=== PATIENT | male | born 1970 | race Caucasian/White ===

== ENCOUNTER 2024-06-18 10:09 | Emergency (ER) | payer OTHER, SELFPAY ==
[2024-06-18 10:14] VITALS: BP 107/64
[2024-06-18 10:27] VITALS: BMI 32.3
[2024-06-18 10:29] VITALS: BP 108/65
[2024-06-18 10:30] VITALS: BP 108/65
[2024-06-18 11:00] VITALS: BP 97/64
[2024-06-18 11:00] LABS: % Basophils 0.5 % (0-2); % Eosinophils 1.7 % (0-6); % Immature Granulocytes 0.3 % (0-0.5); % Lymphocytes 30.3 % (20.5-51.1); % Monocytes 7.9 % (1.7-9.3); % Neutrophils 59.3 % (42.2-75.2); Absolute Eosinophils 0.1 10^3/uL (0-0.7); Absolute Lymphocytes 2.3 10^3/uL (1.2-3.4); Absolute Monocytes 0.6 10^3/uL (0.1-0.6); Absolute Neutrophils 4.5 10^3/uL (1.4-6.5); Hematocrit 40.6 % (39.0-52.0); Mean Corp Hgb Conc. 36.9 g/dL (33.0-37.0); Mean Corpuscular Hgb 29.4 pg (27.0-31.0); Mean Corpuscular Volume 79.6 fL (80.0-94.0); Mean Platelet Volume 10.2 fL (7.4-10.4); Nucleated Red Blood Cells % 0 % (-); Platelet Count 254 10^3/uL (130-400); Red Cell Dist. Width 12.1 % (11.5-14.5); White Blood Cell Count 7.6 10^3/uL (4.8-10.8)
[2024-06-18 11:17] LABS: ALT (SGPT) 18 U/L (0-50); AST (SGOT) 23 U/L (17-59); Albumin 4.2 g/dl (3.5-5.0); Alkaline Phosphatase 108 U/L (38-126); Blood Urea Nitrogen 18 mg/dl (9-20); Carbon Dioxide 28 mmol/L (22-30); Chloride 100 mmol/L (98-107); Estimated Creatinine Clearance > 125 ml/min; Glucose 167 mg/dl (70-99); Potassium 4.1 mmol/L (3.5-5.1); Sodium 137 mmol/L (135-145); Total Bilirubin 1.1 mg/dl (0.2-1.3); Total Protein 6.4 g/dl (6.3-8.2); eGFR > 60.00
--- NOTE | 2024-06-18 11:19 | ED.GENMED ---
History of Present Illness
<Angelina Acuna PA-C - Last Filed: 06/18/24 19:34>
General
Chief Complaint: Abnormal Lab Value
Source: patient
Exam Limitations: none
Time Seen by Provider: 06/18/24 11:19
Nursing documentation reviewed up to this point in time: agreed with
History of Present Illness
History of Present Illness:
Patient is a 54-year-old male with history insulin-dependent diabetes, CAD, hypertension, hyperlipidemia presenting to the emergency department for evaluation of hyperglycemia noted on outpatient lab work. Patient states that he had a routine visit
with his primary care doctor yesterday late afternoon where lab work was obtained. Patient states primary call of this morning saying that his glucose and potassium levels were elevated he should be seen in the emergency department. Patient does
note some worse fatigue over the past few weeks but otherwise denies any other complaints. Specifically he denies any fevers, chills, chest pain, shortness of breath, abdominal pain, nausea, or vomiting.
Patient does endorse poor compliance with insulin at home. He states that he checks his glucose at home somewhat infrequently. He is supposed to use Lantus at night which he states he uses approximately only 2 times per week. In addition�he is
prescribed use Humalog with meals which he states he uses at breakfast and lunch but rarely at dinner. He was given a glucose monitor yesterday while in the emergency department for better monitoring of blood sugar levels. His primary care
provider did give him contact information for an information systems professor for which she plans to follow-up with
Past History
<Angelina Acuna PA-C - Last Filed: 06/18/24 19:34>
Past History
ED Past Medical History: CAD, HTN, Hypercholesterolemia, IDDM, Psychiatric (depression) and Other (DKA Aug 2021)
Social History
Tobacco: Non-smoker
Review of Systems
<Angelina Acuna PA-C - Last Filed: 06/18/24 19:34>
Review of Systems
Allergies reviewed?: Yes
All Other Systems: ROS reviewed and negative except as documented in HPI and ROS
Phy Exam
<Angelina Acuna PA-C - Last Filed: 06/18/24 19:34>
Physical Exam
Physical Exam:
Vitals: Patient's vital signs are stable. Afebrile
General: Patient is very well appearing, no acute distress. Nontoxic appearing
Skin: Warm and dry, no rashes or lesions
Head: Normocephalic, atraumatic
Eyes: Sclera nonicteric. EOMs intact. No nystagmus.
Throat: Protecting airway
Neck: Normal ROM, no cervical spine tenderness, no meningismus
Cardiac: Regular rate and rhythm, no murmurs.
Pulm: Normal respiratory effort, no wheezes, rales, rhonchi heard on exam.
Abdomen: Abdomen soft. No abdominal tenderness. No CVA tenderness
Extremities: No evidence of cyanosis or edema. Great distal pulses
Neuro: Grossly intact.
Psychiatric: Normal affect.
Course
<Angelina Acuna PA-C - Last Filed: 06/18/24 19:34>
Orders/Labs/Results
Orders:
Orders
06/18/24 10:36
CMP [Comprehensive Metabolic Panel] Urgent
Complete Blood Count/With Diff Urgent
06/18/24 11:47
Electrocardiogram (*1) Urgent
Reason for Study: Other
Other Reason for Exam: hyperkalemia
EKG- Treatment ONCE
0.9% Sodium Chloride 1000 ml [Nss] 1,000 ml IV BOLUS
Abnormal Lab Results
06/18/24
10:36
MCV 79.6 L fL
(80.0-94.0)
Glucose 167 H mg/dl
(70-99)
06/18/24 10:36
06/18/24 10:36
Vital Signs
Initial and Last Documented VS:
Initial Vital Signs
Temp Pulse Resp BP Pulse Ox
99 F 78 17 107/64 97
06/18/24 10:14 06/18/24 10:14 06/18/24 10:14 06/18/24 10:14 06/18/24 10:14
Last Documented Vital Signs
Temp Pulse Resp BP Pulse Ox
99 F 72 17 103/63 96
06/18/24 10:14 06/18/24 12:15 06/18/24 12:15 06/18/24 12:00 06/18/24 12:15
<Tera Amado MD - Last Filed: 06/18/24 14:58>
Orders/Labs/Results
Orders:
Orders
06/18/24 10:36
CMP [Comprehensive Metabolic Panel] Urgent
Complete Blood Count/With Diff Urgent
06/18/24 11:47
Electrocardiogram (*1) Urgent
Reason for Study: Other
Other Reason for Exam: hyperkalemia
EKG- Treatment ONCE
0.9% Sodium Chloride 1000 ml [Nss] 1,000 ml IV BOLUS
Abnormal Lab Results
06/18/24
10:36
MCV 79.6 L fL
(80.0-94.0)
Glucose 167 H mg/dl
(70-99)
06/18/24 10:36
06/18/24 10:36
Vital Signs
Initial and Last Documented VS:
Initial Vital Signs
Temp Pulse Resp BP Pulse Ox
99 F 78 17 107/64 97
06/18/24 10:14 06/18/24 10:14 06/18/24 10:14 06/18/24 10:14 06/18/24 10:14
Last Documented Vital Signs
Temp Pulse Resp BP Pulse Ox
99 F 72 17 103/63 96
06/18/24 10:14 06/18/24 12:15 06/18/24 12:15 06/18/24 12:00 06/18/24 12:15
<Angelina Acuna PA-C - Last Filed: 06/18/24 19:34>
MDM/Problems Addressed
Differential Diagnosis Includes:
Not limited to: Hyperglycemia, hyperkalemia, viral illness, infection, dehydration
MDM/Problems Addressed:
54-year-old male presenting to the emergency department following outpatient labs which showed hyperglycemia secondary to medication noncompliance did review patient's lab work faxed from PCP which showed a glucose of 493, potassium of 5.5, and a
sodium of 129. Patient is a type 2 insulin-dependent diabetic and does endorse noncompliance with medications. Patient has no current complaints today. Significantly denies fevers, chills, abdominal pain, nausea, vomiting. He did take his
Humalog this morning. Patient's vital signs are stable on arrival. He is afebrile. Lab work drawn in the emergency department shows no acute abnormalities. Glucose of 167. Potassium of 4.1. Sodium of 137. No anion gap. EKG without any
ischemic changes or abnormalities. Given patient's lab work obtained yesterday�will replete patient with a liter of normal saline.
Suspect patient's lab work yesterday likely due to medication noncompliance. He is asymptomatic here with normal lab work. Did review patient's insulin directions with him. He does report that he has both his short acting and long acting insulin
at home. report checker did come down and discuss with the patient. Stressed importance of medication compliance, administering insulin even if he is asymptomatic. Patient was given information for information systems professor from PCP. He will follow-up
with both PCP and endocrinology. Return precaution discussed. Stable for discharge patient and patient's fianc� expressed understanding. Patient seen with attending physician.
Chronic conditions affecting care:
Insulin-dependent diabetes, hypertension, hyperlipidemia, CAD
Acute Exacerbation and/or Progression of Chronic Illness:
Hyperglycemia
<Angelina Acuna PA-C - Last Filed: 06/18/24 19:34>
*Pulse Oximetry
Patient hypoxic: no
*EKG
Interpreted by ED Provider?: Yes
EKG Intrepretation Date: 06/18/24
Interpretation: normal
Comparison EKG: changes noted
Heart Rate: 71
Rate: normal
Rhythm: sinus
QRS Pattern: right bundle branch block
Ischemia: no ischemia
*Supervisor [employer] Interpretation
Rate: normal
Interpretation: normal
Heart Rate: 78
Rhythm: sinus
*Critical Care Note
Total Time (30-74mins, 75-104mins- exclusive of procedures): Not Applicable
ED Attending Note
<Angelina Acuna PA-C - Last Filed: 06/18/24 19:34>
-
Portions of this chart may have been created with voice recognition software.� Occasional wrong word or��sound alike� substitutions may have occurred due to the inherent limitations of voice recognition software.
<Tera Amado MD - Last Filed: 06/18/24 14:58>
ED Attending Note
Patient seen and examined by attending physician: Yes
ED Attending Note:
I have seen and evaluated the patient with a [id number] encounter. I have spoken to the advance practicer provider and involved in the medical history, the physical exam, medical decision making.
Evaluation and management service: agree unless noted differently below.
Results interpretation: agree unless noted differently below.
Focused HPI: 54-year-old male with history as documented presents for evaluation of hyperglycemia. Patient says that he is on insulin is supposed to take Lantus 45 units nightly and a sliding scale of Humalog. He admits that recently he has been
noncompliant�he says that in part it is because he forgets, in part because he feels well and does not always think to use his insulin. He says that he has access to his insulin, does not need refills on lancets. He says he has access to
glucometer at home. He has been given resources for endocrinology follow-up as an outpatient. He says that he saw his primary doctor for routine blood work and was found to have an elevated glucose of over 500 and was referred to the ER to be
evaluated. This morning he did take his Humalog because of the hyperglycemia, did not use his Lantus last night. He is asymptomatic.
Physical exam: Awake alert not in distress. Vital signs normal. Mucous membranes moist. Not edematous.
Medical Decision Makin-year-old male presents with hyperglycemia in the setting of insulin noncompliance/intermittent compliance. He is asymptomatic. His vitals are normal. Labs were sent off including a CBC and a CMP; CMP shows glucose of
167 with no electrolyte derangements. He was given some fluids here. Spoke with the guide travel here and nurse practitioner came to the bedside to speak with patient, provide counselor dormitory and go over follow-up plan with him. I stressed the
importance of medication compliance even if he is feeling well. Encouraged healthy diet. He indicated understanding. All questions answered.
Discharge Plan
Departure
Patient Disposition: Home (Routine Discharge)
Date of Disposition: 06/18/24
Time of Disposition: 12:24
Patient with high blood pressure during this ER visit?: No
Condition: Good
Covid-19: Not Applicable
Discharge Problem:
History of hyperglycemia, Type 2 diabetes mellitus
Instructions: Type 2 diabetes, High Blood Sugar, Adult ED
Prescriptions:
No Action
aspirin 81 MG tablet,delayed release (DR/EC)
81 mg PO DAILY
escitalopram oxalate 10 MG tablet
20 mg PO DAILY
nitroglycerin 0.4 MG tablet, sublingual
0.4 mg sublingual [id number] PRN (Reason: CHEST PAIN)
clopidogrel 75 MG tablet
75 mg PO DAILY Qty: 90 3RF
pantoprazole 40 MG tablet,delayed release (DR/EC)
40 mg PO DAILY Qty: 30 5RF
rosuvastatin 20 MG tablet
20 mg PO DAILY
metoprolol succinate 50 MG tablet extended release 24 hr
50 mg PO DAILY
lisinopril 5 MG tablet
5 mg PO DAILY
isosorbide mononitrate [Imdur] 30 mg Tablet Extended Release 24 Hr
30 mg PO DAILY
Theragen Tablet
1 tab PO DAILY
hydrochlorothiazide 25 mg Tablet
25 mg PO DAILY
insulin lispro [Humalog KwikPen Insulin] 100 unit/mL Insulin Pen
12 sliding scale dose SC ACHS
insulin glargine [Lantus Solostar U-100 Insulin] 300 UNITS/3 ML insulin pen
45 units SC HS
pregabalin [Lyrica] 150 mg Capsule
150 mg PO TID
Referrals:
Dilma Gunn CRNP [Family Provider] - Keep scheduled appt
Stand Alone Forms: Return to Work
Activity Restrictions/Additional Instructions:
RETURN TO THE EMERGENCY DEPARTMENT WITH ANY FEVERS, CHEST PAIN, SHORTNESS OF BREATH, SIGNIFICANTLY ELEVATED BLOOD SUGARS, SIGNS OF SEVERE DEHYDRATION, WORSENING IN CURRENT SYMPTOMS, OR ANY OTHER CONCERNS
-As discussed�it is very important that you comply to your insulin routine at home. You should continue to monitor your sugars closely and take your insulin as directed by your primary care provider.
-It is important to stay well-hydrated. You should follow a well-balanced diet and limit your sugar intake.
-Follow-up with your primary care provider and/or endocrinology for further evaluation/management.
Monitor your symptoms closely and return to the emergency department with any acute worsening/new symptoms
Interventions
Interventions:
*Risk Screen - Suicide Last Done: 06/18/24 10:16
*General Assessment Last Done: 06/18/24 10:16
*Neglect/Abuse Screening Last Done: 06/18/24 10:16
ED- Fall Risk Assessment Last Done: 06/18/24 10:30
*ED COVID-19 Vaccine History Last Done: 06/18/24 10:30
*Nursing Disposition Last Done: 06/18/24 13:04
Discharge Date and Time
Discharge Date/Time: 06/18/24 13:05
Print Language: PERUVIAN
[2024-06-18 11:39] VITALS: BP 103/67
[2024-06-18] MEDS: NSS 1000 IV (11:59)
[2024-06-18 12:00] VITALS: BP 103/63
--- NOTE | 2024-06-18 13:40 | PN.DE.MGMTRT ---
Insulin Management
- -
06/18/2024 Diabetes Management Consult
Patient in Emergency Department, sent from [facility] due to abnormal labs. PMH type 2 diabetes requiring insulin, CAD, HTN, HLD, depression. Prior to admission patient was supposed to take lantus 45 units @ hs and Humalog on SS but he lost his SS.
Patient does not know when last A1C was but states it is usually 13 or 14%. Glucose on admission 167, cr .8, eGFr >60.
Patient is awake alert and oriented able to discuss diabetes management. at bedside.
When questioned patient states he often forgets his insulin in particular his lantus. 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
He has been followed by his primary care doctor for diabetes but has twice been referred to endocrine. He states he made an appointment with [facility] but forgot to go to the appointment.
I provided him with written instructions to take:
45 units of lantus at HS EVERY day.
Humalog 8 units AC with high corrective insulin (taped scale to instructions).
He is to test his glucose before each meal and HS and call me in AM for further instructions.
Will follow until seen by endo or primary care.
Diabetes History
- -
Type of Diabetes: 2 requiring insulin
Pre-Admission Diabetes Regimen
06/18/24
10:36
Creatinine 0.8
Insulin Pump Settings
IP Diabetes Regimen
06/18/24
10:36
Glucose 167 H
Patient Education
== END 2024-06-18 13:05 | disposition home or self-care (01) ==
LOC: EMR 10:09
PROVIDERS: EMERGENCY PHYSICIAN Emergency Medicine; FAMILY PHYSICIAN Nurse Practitioner Adult Health
DX: E11.65 Type 2 diabetes mellitus with hyperglycemia (principal); E78.00 Pure hypercholesterolemia, unspecified; I10 Essential (primary) hypertension; I25.10 Atherosclerotic heart disease of native coronary artery without angina pectoris; Z79.4 Long term (current) use of insulin; Z91.148 Patient's other noncompliance with medication regimen for other reason
CPT/HCPCS: 99283; 96360; 80053; 85025; 93005

== ENCOUNTER → 2025-03-14 14:40 | Outpatient (REF) | payer OTHER, SELFPAY | LOC: RCS 14:40 | PROVIDERS: ATTENDING PHYSICIAN Internal Medicine Cardiovascular Disease; FAMILY PHYSICIAN Family Medicine | DX: E78.5 Hyperlipidemia, unspecified (principal); I10 Essential (primary) hypertension; I25.10 Atherosclerotic heart disease of native coronary artery without angina pectoris; Z79.4 Long term (current) use of insulin; R00.0 Tachycardia, unspecified | CPT/HCPCS: 93306 ==